=== PATIENT | male | born 1940 | race Caucasian/White ===

== ENCOUNTER 2021-01-15 21:23 | Emergency (ER) | payer OTHER, MEDICARE ==
[~2021-01-15] VITALS: Ht 172.7 cm; Wt 75.0 kg
[2021-01-15 22:03] LABS: HEMATOCRIT 38.7 % (39.0-50.0); HEMOGLOBIN 11.9 g/dl (14.0-18.0); MEAN CELL VOLUME 97.5 fL CALC (80.0-100.0); MEAN CORPUSCULAR HGB CONC 30.7 g/dL CAL (32.0-36.0); NEUT# 17.1 thou/uL (1.82-7.42); RED BLOOD COUNT 3.97 mill/uL (4.70-6.10); RED CELL DISTRI WIDTH 17.2 % (11.5-15.5)
[2021-01-15 22:24] LABS: ACT PARTIAL THROMBO TIME 22.7 SECONDS (20.0-32.5); INTERNATIONAL NORMALIZED RATIO 1.3 RATIO (0.7-1.3); PROTHROMBIN TIME 12.7 SECONDS (9.0-12.5)
[2021-01-15 22:33] LABS: ALBUMIN 3.1 g/dL (3.2-5.0); ALKALINE PHOSPHATASE 838 u/l (38-126); AMYLASE 67 u/l (30-110); ANION GAP 20 (6-22 (CALC)); BILIRUBIN, TOTAL 5.9 mg/dL (0.0-1.4); BUN 15 mg/dL (8-23); BUN/CREATININE RATIO 30 (12-20 (CALC)); CARBON DIOXIDE 22 mmol/l (22-30); CHLORIDE 91 mmol/l (95-108); CREATININE 0.5 mg/dL (0.7-1.3); GFR > 60 ML/MIN (>=60 (CALC)); GFR FOR AFR.AMER. > 60 ML/MIN (>=60 (CALC)); LIPASE 48 u/l (23-300); MAGNESIUM 2.1 mg/dL (1.6-2.3); POTASSIUM 4.5 mmol/l (3.5-5.1); SGOT/AST 126 u/l (19-48); SODIUM 129 mmol/l (137-146); TOTAL PROTEIN 7.8 g/dL (6.3-8.2)
[2021-01-16 01:19] LABS: URINE BLOOD DIPSTICK NEGATIVE (NEGATIVE); URINE GLUCOSE - DIPSTICK NEGATIVE (NEGATIVE); URINE KETONE 15 mg/dL (NEGATIVE); URINE LEUK ESTERASE NEGATIVE (NEGATIVE); URINE PH 5.5 (4.5-8.0); URINE PROTEIN - DIPSTICK 30 mg/dL (NEG-TRACE); URINE UROBILINOGEN - DIPSTICK >=8.0 E.U./dL (0.2)
[2021-01-16 01:23] LABS: URINE BILIRUBIN - DIPSTICK LARGE (NEGATIVE); URINE COLOR AMBER
[2021-01-16 01:24] LABS: URINE NITRITE - DIPSTICK POSITIVE (Negative)
[2021-01-16 01:32] LABS: URINE BACTERIA MODERATE hpf; URINE EPITHELIAL CELLS FEW EPI/hpf (0-FEW); URINE RBC 0-2 RBC/hpf (0-5)
[2021-01-16 01:33] LABS: URINE MUCUS MODERATE hpf (NONE-FEW)
[2021-01-16 01:34] LABS: URINE HYALINE CAST RARE lpf (NONE-RARE)
[2021-01-16 02:15] VITALS: BP 141/65
== END 2021-01-16 02:15 | disposition short-term general hospital (02) | DRG 872 ==
LOC: ED 21:23
DX: A41.9 Sepsis, unspecified organism (principal); R74.8 Abnormal levels of other serum enzymes; C61 Malignant neoplasm of prostate; I10 Essential (primary) hypertension; Z20.822 Contact with and (suspected) exposure to COVID-19